=== PATIENT | male | born 1995 | race Caucasian/White ===

== ENCOUNTER 2018-09-16 10:45 | Emergency (ER) | payer SELFPAY ==
[~2018-09-16] VITALS: Ht 172.7 cm; Wt 59.0 kg
[2018-09-16 10:45] VITALS: BP_SYST 135
--- NOTE | 2018-09-16 10:45 | NUR ---
BROUGHT BACK TO ROOM #5 AND TRIAGED. REPORT GIVEN TO RAMESH
--- NOTE | 2018-09-16 10:55 | NUR ---
Prateek valencia called for sitter.
--- NOTE | 2018-09-16 10:55 | NUR ---
Pt states he is "hearing voices to harm others and himself." Pt placed under direct observation.
--- NOTE | 2018-09-16 10:58 | NUR ---
Security at bedside wanding pt. Pt disrobed and all belongings taken out of room. Room free of wires, cabinets locked.
--- NOTE | 2018-09-16 11:00 | NUR ---
pt is laying in bed laughing. no signs of distress. will continue to monitor.
--- NOTE | 2018-09-16 11:03 | NUR ---
ER Dr. Mclain at bedside examining patient.
--- NOTE | 2018-09-16 11:15 | NUR ---
pt is laying in bed. no signs of distress. will continue to monitor.
--- NOTE | 2018-09-16 11:24 | NUR ---
pt ambulated to bathroom with security assistance. pt is yelling in bathroom.
[2018-09-16 11:26] LABS: BASOPHILS # (AUTO) 0.1 K/uL (0.0-0.2); BASOPHILS % (AUTO) 0.7 % (0.0-2.0); EOSINOPHILS # (AUTO) 0.1 K/uL (0.0-0.4); EOSINOPHILS % (AUTO) 1.2 % (0.0-4.0); HEMATOCRIT 47.8 % (36-54); HEMOGLOBIN 15.9 g/dL (14.0-18.0); LYMPHOCYTES # (AUTO) 3.3 K/uL (1.0-5.5); LYMPHOCYTES % (AUTO) 28.1 % (20.5-51.5); MEAN CORPUSCULAR HEMOGLOBIN 30 pg (27-31); MEAN CORPUSCULAR HGB CONC 33 % (32-36); MEAN CORPUSCULAR VOLUME 90 fL (79.0-98.0); MONOCYTES # (AUTO) 0.9 K/uL (0.0-1.0); MONOCYTES % (AUTO) 7.7 % (1.7-9.3); NEUTROPHILS # (AUTO) 7.2 K/uL (1.8-7.7); NEUTROPHILS % (AUTO) 62.3 % (40.0-70.0); PLATELET COUNT (AUTO) 304 K/uL (130-430); RED CELL DISTRIBUTION WIDTH 13.8 % (9.0-15.0); WHITE BLOOD COUNT (AUTO) 11.6 K/uL (4.8-10.8)
--- NOTE | 2018-09-16 11:27 | NUR ---
Change Nurse Called 241
--- NOTE | 2018-09-16 11:27 | NUR ---
PT YELLING AND SCREAMING IN RESTROOM, SECURITY AT BATHROOM, PT THROWING STUFF IN BATHROOM, DOOR OPENED BY SECURITY AND ATTEMPTED TO ESCORT PT BACK TO ROOM #5, PT ATTEMPTING TO LEAVE. CALLED, SECURITY AT BEDSIDE.
--- NOTE | 2018-09-16 11:29 | NUR ---
pt attempted to leave and run out of ER. security escorted pt back to room. pt currently in bed speaking to himself. pt is aware that if he leaves we will call the sales and catering coordinator.
[2018-09-16] MEDS ORDERED: DIPHENHYDRAMINE INJ 50 MG/ML VIAL IM ONE (11:30)
[2018-09-16] MEDS ORDERED: LORazepam 2 MG/ML VIAL IM ONE (11:30)
[2018-09-16] MEDS ORDERED: HALOPERIDOL LACTATE 5 MG/ML VIAL IM ONE (11:30)
[2018-09-16 11:32] LABS: CALCIUM 8.9 mg/dL (8.4-11.0); CREATININE 0.69 mg/dL (0.55-1.30); POTASSIUM 3.1 mmol/L (3.5-5.1)
--- NOTE | 2018-09-16 11:35 | NUR ---
Assumed sitter care. Pt sitting up, laughing, talking to self. Security at bedside. NEREIDA Calero was called d/t aggressive behavior to staff.
[2018-09-16 11:36] LABS: TOTAL BILIRUBIN 0.8 mg/dL (0.0-1.0)
[2018-09-16 11:40] LABS: BILIRUBIN,URINE NEGATIVE (NEGATIVE); BLOOD, URINE NEGATIVE (NEGATIVE); CLARITY/URINE CLEAR (CLEAR); COLOR,URINE YELLOW (YELLOW); GLUCOSE,URINE NEGATIVE (NEGATIVE); KETONES,URINE NEGATIVE (NEGATIVE); LEUKOCYTE ESTERASE ,URINE NEGATIVE (NEGATIVE); NITRITE, URINE NEGATIVE (NEGATIVE); PROTEIN URINE NEGATIVE (NEGATIVE); UROBILINOGEN,URINE 0.2 (0.2-1.0)
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
--- NOTE | 2018-09-16 11:44 | NUR ---
NICHOLAS LR ARRIVED AND WITH PT. Addendum: 09/16/18 at 1149 by ERICEDRIAN NICHOLAS BUITRAGO.
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
--- NOTE | 2018-09-16 11:47 | NUR ---
patient begins laughing and shaking legs in bed.
[2018-09-16 11:48] LABS: BARBITURATE, URINE NEGATIVE (NEG <=200); BENZODIAZEPINE, URINE NEGATIVE (NEG <=150); CANNABINOID, URINE POSITIVE (NEG <=50); COCAINE, URINE NEGATIVE (NEG <=150); METHAMPHETAMINES SCREEN,URINE NEGATIVE (NEG <=500); OPIATE, URINE NEGATIVE (NEG <=100); PHENCYCLIDINE SCREEN,URINE NEGATIVE (NEG <=25); UR TRICYCLIC ANTIDEPRESSANTS NEGATIVE (NEG <=300); URINE AMPHETAMINE NEGATIVE (NEG <=500); URINE METHADONE NEGATIVE (NEG <=200); URINE OXYCODONE SCREEN NEGATIVE (NEG <=100); URINE PROPOXYPHENE SCREEN NEGATIVE (NEG <=300)
--- NOTE | 2018-09-16 11:48 | NUR ---
Pt states that he is supposed to take medication for the "voices" and hasn't taken them in over 2 years. Remeron, Risperidone
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
[2018-09-16] MEDS ORDERED: LORazepam 2 MG/ML VIAL (FOR ER USE) ONE (11:50)
--- NOTE | 2018-09-16 12:01 | NUR ---
RESTING QUIETLY, NO CHANGES
--- NOTE | 2018-09-16 12:15 | NUR ---
pt is resting in bed. no signs of distress. will continue to monitor
--- NOTE | 2018-09-16 12:30 | NUR ---
pt is resting in bed. no signs of distress. will continue to monitor.
--- NOTE | 2018-09-16 12:30 | NUR ---
SECURITY AT BEDSIDE.
--- NOTE | 2018-09-16 12:45 | NUR ---
pt is resting in bed. no signs of distress. will continue to monitor. security at bedside.
--- NOTE | 2018-09-16 13:00 | NUR ---
pt is resting in bed. no signs of distress. will continue to monitor. security at bedside.
--- NOTE | 2018-09-16 13:15 | NUR ---
pt is resting in bed. no signs of distress. will continue to monitor. security at bedside.
--- NOTE | 2018-09-16 13:22 | NUR ---
Dr. Sanabria at bedside for psych evaluation.
--- NOTE | 2018-09-16 13:28 | NUR ---
Dr. Sanabria states to place pt on 5150 hold, form signed and placed in chart.
--- NOTE | 2018-09-16 13:30 | NUR ---
dr. romero is at bedside eval pt. no signs of distress. will continue to monitor. security at bedside.
--- NOTE | 2018-09-16 13:30 | NUR ---
Pt remains in bed with restraints sleeping and moving round. No acute distress noted.
--- NOTE | 2018-09-16 13:44 | NUR ---
PLACEMENT NOTES F[facility] over [phone]
--- NOTE | 2018-09-16 13:45 | NUR ---
pt is resting in bed. no signs of distress. will continue to monitor. security at bedside.
--- NOTE | 2018-09-16 14:00 | NUR ---
Pt resting in bed. No acute distress noted.
--- NOTE | 2018-09-16 14:15 | NUR ---
RESTING QUIETLY, SECURITY AT BEDSIDE FOR SAFETY
--- NOTE | 2018-09-16 14:30 | NUR ---
SECURITY AT BEDSIDE. PT SLEEPING
--- NOTE | 2018-09-16 14:45 | NUR ---
Pt resting currently. Security at bedside. No acute distress noted.
--- NOTE | 2018-09-16 15:00 | NUR ---
Pt currently resting in bed . Security at bedside. No acute distress noted.
--- NOTE | 2018-09-16 15:15 | NUR ---
Pt resting in bed, moving a lot. Security at bedside. No acute distress noted.
--- NOTE | 2018-09-16 15:30 | NUR ---
Pt resting in bed. Security at bedside. No acute distress noted.
--- NOTE | 2018-09-16 15:45 | NUR ---
pt is resting in bed. no signs of distress. will continue to monitor. security at bedside.
--- NOTE | 2018-09-16 16:00 | NUR ---
Pt resting in bed. Security at bedside. No acute distress noted.
--- NOTE | 2018-09-16 16:15 | NUR ---
Pt resting in bed. Security at bedside. No acute distress noted
--- NOTE | 2018-09-16 16:15 | NUR ---
Pt resting in bed, no acute distress noted. Security at bedside.
--- NOTE | 2018-09-16 16:30 | NUR ---
Pt resting in bed. Security at bedside. No acute distress noted
--- NOTE | 2018-09-16 16:30 | NUR ---
Pt resting in bed, no acute distress noted. Security at bedside.
--- NOTE | 2018-09-16 16:45 | NUR ---
Pt resting in bed. Security at bedside. No acute distress noted
--- NOTE | 2018-09-16 16:45 | NUR ---
Pt resting in bed, no acute distress noted. Security at bedside. Vitals taken.
--- NOTE | 2018-09-16 17:00 | NUR ---
Pt resting in bed. Security at bedside. No acute distress noted
--- NOTE | 2018-09-16 17:18 | NUR ---
Pt resting in bed. no signs of distress. will continue to monitor.
--- NOTE | 2018-09-16 17:30 | NUR ---
Pt resting in bed. no signs of distress. will continue to monitor
--- NOTE | 2018-09-16 17:45 | NUR ---
Pt resting in bed. no signs of distress. will continue to monitor
--- NOTE | 2018-09-16 18:00 | NUR ---
Pt resting in bed. no signs of distress. will continue to monitor
--- NOTE | 2018-09-16 18:03 | NUR ---
pt is resting in bed no sign of distres
--- NOTE | 2018-09-16 18:20 | NUR ---
pt is awke and is asking for something to drink
--- NOTE | 2018-09-16 18:35 | NUR ---
pt is laying down being quiet
--- NOTE | 2018-09-16 18:59 | NUR ---
pt is resting and no sign of distress
--- NOTE | 2018-09-16 19:16 | NUR ---
pt is resting and show no sign of distress
--- NOTE | 2018-09-16 19:30 | NUR ---
Pt is sleeping in bed, no acute distress noted at this time. Will continue to monitor.
--- NOTE | 2018-09-16 19:38 | NUR ---
pt is resting well
--- NOTE | 2018-09-16 19:55 | NUR ---
pt is resting well
--- NOTE | 2018-09-16 20:12 | NUR ---
pt is resting well
--- NOTE | 2018-09-16 20:30 | NUR ---
pt is resting well
--- NOTE | 2018-09-16 20:30 | NUR ---
Pt is sleeping in bed, no acute distress noted at this time. Pt is still restrained. Will continue to monitor
--- NOTE | 2018-09-16 20:58 | NUR ---
pt is resting well
--- NOTE | 2018-09-16 21:20 | NUR ---
Nicole barkley in [facility] - 09/16/18 at 2121 by [email or web address] pt is resting well to complining
--- NOTE | 2018-09-16 21:21 | NUR ---
pt is resting well
--- NOTE | 2018-09-16 21:30 | NUR ---
Pt is sleeping in bed, no acute distress noted at this time. Will continue to monitor.
--- NOTE | 2018-09-16 22:07 | NUR ---
pt is resting well
--- NOTE | 2018-09-16 22:23 | NUR ---
pt is resting well
--- NOTE | 2018-09-16 22:30 | NUR ---
Pt is sleeping in bed, no acute distress noted at this time. Will continue to monitor.
--- NOTE | 2018-09-16 22:40 | NUR ---
pt is resting well
--- NOTE | 2018-09-16 23:19 | NUR ---
pt is resting well
--- NOTE | 2018-09-16 23:30 | NUR ---
Pt is sleeping in bed, no acute distress noted at this time.
--- NOTE | 2018-09-17 00:09 | NUR ---
pt is resting well
--- NOTE | 2018-09-17 00:24 | NUR ---
pt is resting well
--- NOTE | 2018-09-17 00:30 | NUR ---
Pt is resting in bed, being monitored by staff.
--- NOTE | 2018-09-17 00:44 | NUR ---
pt is resting well
--- NOTE | 2018-09-17 01:07 | NUR ---
pt sleeping in bed. No signs of distress, will continue to monitor.
--- NOTE | 2018-09-17 01:16 | NUR ---
pt sleeping in bed. No signs of distress, will continue to monitor.
--- NOTE | 2018-09-17 01:28 | NUR ---
pt sleeping in bed. No signs of distress, will continue to monitor.
--- NOTE | 2018-09-17 01:30 | NUR ---
Pt is sleeping, no acute distress at this time.
--- NOTE | 2018-09-17 01:45 | NUR ---
pt sleeping in bed. No signs of distress, will continue to monitor.
--- NOTE | 2018-09-17 02:16 | NUR ---
pt is resting well
--- NOTE | 2018-09-17 02:30 | NUR ---
pt is resting well
--- NOTE | 2018-09-17 02:30 | NUR ---
Pt sleeping in bed, no acute distress noted at this time.
--- NOTE | 2018-09-17 02:45 | NUR ---
pt is resting well
--- NOTE | 2018-09-17 03:00 | NUR ---
Elise to assume care.
--- NOTE | 2018-09-17 03:30 | NUR ---
Pt is resting in bed, no acute distress noted at this time
--- NOTE | 2018-09-17 03:33 | NUR ---
pt had food to eat and is now sleeping again
--- NOTE | 2018-09-17 03:40 | NUR ---
Shaun to resume care.
--- NOTE | 2018-09-17 03:50 | NUR ---
pt is resting well
--- NOTE | 2018-09-17 04:13 | NUR ---
pt is resting well
--- NOTE | 2018-09-17 04:30 | NUR ---
Pt is sleeping in bed, no acute distress noted at this time.
--- NOTE | 2018-09-17 04:31 | NUR ---
pt is resting well
--- NOTE | 2018-09-17 04:46 | NUR ---
pt is resting well
--- NOTE | 2018-09-17 05:00 | NUR ---
pt is resting well
--- NOTE | 2018-09-17 05:17 | NUR ---
PT IS RESTING WELL
--- NOTE | 2018-09-17 05:30 | NUR ---
Pt is resting in bed, no acute distress noted at this time
--- NOTE | 2018-09-17 05:34 | NUR ---
PT IS RESTING WELL
--- NOTE | 2018-09-17 05:50 | NUR ---
PT IS RESTING WELL
--- NOTE | 2018-09-17 06:04 | NUR ---
PT IS RESTING WELL
--- NOTE | 2018-09-17 06:18 | NUR ---
PT IS RESTING WELL
--- NOTE | 2018-09-17 06:32 | NUR ---
Pt sleeping comfortably in hospital bed. No acute distress. Will continue to monitor.
--- NOTE | 2018-09-17 06:48 | NUR ---
Pt resting comfortably in hospital bed. no acute distress. will continue to monitor
--- NOTE | 2018-09-17 07:00 | NUR ---
Pt is resting in bed, no acute distress noted at this time
--- NOTE | 2018-09-17 07:13 | NUR ---
Pt is resting in bed. no acute distress noted at this time. will continue to monitor. breakfast tray is provided and is at bed side.
--- NOTE | 2018-09-17 07:25 | NUR ---
PATIENT IN A COMFORTABLE POSITION, BREATHING REGULAR, CONTINUE TO MONITOR.
--- NOTE | 2018-09-17 07:30 | NUR ---
Pt is resting in bed. no acute distress noted at this time. will continue to monitor.
--- NOTE | 2018-09-17 07:35 | NUR ---
pt is awake and is sitting up in bed eating breakfast.
--- NOTE | 2018-09-17 07:45 | NUR ---
Pt is resting in bed. no acute distress noted at this time. will continue to monitor.
--- NOTE | 2018-09-17 07:54 | NUR ---
escorted pt to bathroom. pt is currently laying in bed. no signs of distress. will continue to monitor.
--- NOTE | 2018-09-17 08:00 | NUR ---
Pt is resting in bed. no acute distress noted at this time. will continue to monitor.
--- NOTE | 2018-09-17 08:15 | NUR ---
Patient resting in bed, symmetrical rise and fall of chest. No signs or symptoms of distress noted.
--- NOTE | 2018-09-17 08:30 | NUR ---
Patient resting in bed, symmetrical rise and fall of chest. No signs or symptoms of distress noted.
--- NOTE | 2018-09-17 08:45 | NUR ---
Patient resting in bed, symmetrical rise and fall of chest. No signs or symptoms of distress noted.
--- NOTE | 2018-09-17 09:00 | NUR ---
Patient resting in bed, symmetrical rise and fall of chest. No signs or symptoms of distress noted.
--- NOTE | 2018-09-17 09:15 | NUR ---
Patient resting in bed, symmetrical rise and fall of chest. No signs or symptoms of distress noted.
[2018-09-17] MEDS ORDERED: POTASSIUM CHLORIDE 20 MEQ/PKT PACKET PO ONE (09:30)
--- NOTE | 2018-09-17 09:30 | NUR ---
Patient resting in bed, symmetrical rise and fall of chest. No signs or symptoms of distress noted.
--- NOTE | 2018-09-17 09:45 | NUR ---
Patient resting in bed, symmetrical rise and fall of chest. No signs or symptoms of distress noted.
--- NOTE | 2018-09-17 10:00 | NUR ---
Patient awake and sitting up in bed, moving around in bed. No signs or symptoms of distress noted.
--- NOTE | 2018-09-17 10:15 | NUR ---
Patient awake and sitting up in bed, moving around in bed. No signs or symptoms of distress noted.
--- NOTE | 2018-09-17 10:17 | NUR ---
Patient escorted to use restroom. Patient brought back to hospital bed and laying down. No signs or symptoms of distress noted.
--- NOTE | 2018-09-17 10:30 | NUR ---
Patient resting in bed, moving around. No signs or symptoms of distress noted.
--- NOTE | 2018-09-17 10:45 | NUR ---
Patient resting in bed, moving around. No signs or symptoms of distress noted.
--- NOTE | 2018-09-17 11:00 | NUR ---
Patient resting in bed, symmetrical rise and fall of chest noted. No signs or symptoms of distress noted.
--- NOTE | 2018-09-17 11:15 | NUR ---
Patient resting in bed, symmetrical rise and fall of chest. No signs or symptoms of distress noted.
--- NOTE | 2018-09-17 11:30 | NUR ---
Patient resting in bed, symmetrical rise and fall of chest. No signs or symptoms of distress noted.
--- NOTE | 2018-09-17 11:45 | NUR ---
REPORT. PAT[facility] TO BE [facility] VIA [facility], REPORT GIVEN TO NURSE ERIC, PATIENT TOOK ALL HIS PERSONAL BELONGINGS WITH HIM, PT STABLE, LUNCH TRAY PROVIDED.
--- NOTE | 2018-09-17 11:52 | NUR ---
DISCHARGE. TRANSPORTED BY [facility].
[2018-09-17 12:30] VITALS: BP_SYST 130
== END 2018-09-17 11:52 ==
LOC: SED 10:45
DX: F06.0 Psychotic disorder with hallucinations due to known physiological condition (principal); F20.0 Paranoid schizophrenia; R45.6 Violent behavior; F31.9 Bipolar disorder, unspecified
CPT/HCPCS: 36415; 80053; 80307; 81003; 83690; 83880; 84132; 85025; 85379; 85610; 85730; 96372; 96374; 99285; G0482; J1200; J1630; J2060